=== PATIENT | female | born 1980 | race Caucasian/White ===

== ENCOUNTER 2020-07-15 08:41 | Day surgery (SDC) | payer OTHER, SELFPAY ==
[2020-07-15 08:45] LABS: Absolute Lymphocytes (CBC) 1.6 K/uL (0.7-4.9); Basophils % 0.7 % (0-1.3); Lymphocytes % 24.1 % (15.3-44.8); MPV 8.1 fL (7.6-11.3); RBC Red Blood Cell Count 4.38 M/uL (3.86-4.86)
[2020-07-15 09:12] LABS: ALT/SGPT 19 U/L (12-78); AST/SGOT 14 U/L (15-37); Albumin 3.5 g/dL (3.4-5.0); Alkaline Phosphatase 82 U/L (45-117); Amylase 28 U/L (25-115); BUN Blood Urea Nitrogen 14 mg/dL (7-18); Bicarbonate 30 mmol/L (21-32); Bilirubin Direct 0.1 mg/dL (0-0.2); Bilirubin Total 0.7 mg/dL (0.2-1.0); Glucose Level 99 mg/dL (74-106); Lipase 129 U/L (73-393); Potassium 3.9 mmol/L (3.5-5.1); Protein, Total 7.8 g/dL (6.4-8.2); Sodium Level 141 mmol/L (136-145)
--- NOTE | 2020-07-15 09:20 | RAD REPORT ---
EXAM DESCRIPTION: Rosio Osborne (2 Views)07/15/2020 8:43 am CLINICAL HISTORY: Preop for gallbladder surgery COMPARISON: None FINDINGS: The lungs appear clear of acute infiltrate. The heart is normal size IMPRESSION: No acute abnormalities displayed
[2020-07-15] MEDS ORDERED: Ringers Lactate 1,000 ML IV ONE ×2 (10:03→13:10)
[2020-07-15] MEDS: CEFOXITIN/SWI 1gm 1 GM/10 ML SYR ONE ×2 (11:18→12:00)
[2020-07-15] MEDS ORDERED: FENTANYL CITR 100 MCG/2 ML ONE ×2 (12:07→12:30)
[2020-07-15] MEDS ORDERED: ROCURONIUM 50 MG/5 ML VIAL IV ONE (12:08)
[2020-07-15] MEDS ORDERED: LIDOCAINE 1% MPF 5 ML VIAL ONE (12:08)
[2020-07-15] MEDS ORDERED: MIDAZOLAM HCL 2 MG/2 ML INJ ONE (12:08)
[2020-07-15] MEDS ORDERED: propofoL 200 MG/20 ML VIAL IV ONE (12:08)
[2020-07-15] MEDS ORDERED: dexAMETHasone 10 MG/ML VIAL ONE (12:35)
[2020-07-15] MEDS ORDERED: ONDANSETRON 4 MG/2 ML VIAL ONE (12:37)
[2020-07-15] MEDS ORDERED: KETOROLAC 30 MG/ML INJ ONE (12:37)
[2020-07-15] MEDS ORDERED: EPHEDRINE SULF 50 MG/ML VIAL ONE (12:42)
[2020-07-15] MEDS ORDERED: NEOSTIGMINE 1 MG/ML -5 ML ONE (13:01)
[2020-07-15] MEDS ORDERED: GLYCOPYRROLATE 0.2 MG/ML SYR ONE ×2 (13:01→13:10)
[2020-07-15] MEDS ORDERED: HYDROCODONE/APAP 5/325 MG TAB PO ONE (13:53)
[2020-07-15] MEDS ORDERED: HYDROCODONE/APAP 10/325 TAB ONE (14:12)
[2020-07-15 14:34] VITALS: BP 125/75; TEMP 96.6; O2SAT 98
--- NOTE | 2020-07-15 23:37 | OP ---
Date of Procedure: 07/15/2020 Surgeon: Rayray Nixon MD Bag Press Operator: ANJALI Trevizo. Preoperative Diagnoses: Right upper quadrant abdominal pain, acute cholecystitis, symptomatic cholel ithiasis. Postoperative Diagnosis: Right upper quadrant abdominal pain, acute cholecystitis, symptomatic jomar lithiasis plus intraabdominal adhesions. Procedure: Laparoscopic cholecystectomy, laparoscopic lysis of adhesions. Anesthesia: General plus local. Indication: This is the case of a 39-year-old patient who comes to us with above diagnosis. I fully explained the benefits, alternatives, and risks of laparoscopic, possible open cholecystectomy which include, but not limited to infection, bleeding, damage to adjacent structures, anesthesia complicat ion, choledocholithiasis, bile leak, pancreatitis, DC, and even . She also understands this may not relieve her symptoms. She might need more than one surgical intervention. She understood, sign ed a consent. Procedure In Detail: The patient was brought to the operating room, placed in supine position. Anes thesia was done without complication. Abdominal area was prepped and draped in a sterile fashion. M arcaine 0.5% was injected for local anesthetic followed by sharp incision of the skin in the infraumb ilical region. Incision was carried down to fascia, which was opened under direct vision. Peritoneu m was encountered, opened under direct vision. Vicryl #1 was placed inside the fascia. Katalina troca r was carefully introduced. Pneumoperitoneum was obtained. I placed 3 more trocars, 5 mm each one o f them in epigastric and right upper quadrant area under direct visualization after making an incisio n. This allowed me to put a grasper in the fundus of the gallbladder. Numerous omental adhesions to the gallbladder were carefully removed in order to continue with the surgery. We made sure there we re no enterotomies and there was no bleeding. Another grasper was placed in the infundibulum and the gallbladder was retracted in the inferolateral fashion exposing the triangle of Calot obtaining crit ical view. Cystic duct and cystic artery were clearly isolated free circumferentially, and a connect ion between those and the gallbladder were clearly identified. I proceeded to ligate those by using at least 3 clips proximal, 1 clip distal, ligation in middle. Same was done with the cystic artery. No bile leak. No bleeding. The gallbladder was removed from liver using Bovie cauterizer and remov ed from abdominal cavity using EndoCatch through the umbilical incision. The area was inspected once again. No bile leak. No bleeding. At that moment, I proceeded to remove trocars under direct visi on. Deflated pneumoperitoneum. Closed the fascia with 1 Vicryl. Irrigated the subcutaneous tissue, closed with 3-0 chromic and skin in a subcuticular fashion with 3-0 chromic and Steri-Strips on top. Sponge count and instrument counts correct. The patient tolerated the procedure well. The patient was on her way to recovery in stable condition. CIERRA/KENN Voice ID: [id number] Report ID: [id number]
--- NOTE | 2020-07-15 23:43 | DS ---
Date of Discharge: 07/15/2020 Diagnoses: Acute cholecystitis, right upper quadrant abdominal pain, symptomatic cholelithiasis. Procedure: Laparoscopic cholecystectomy. Disposition: Home. Activity: As tolerated. No heavy lifting. Follow in my office in 1 week. Call for appointment at [phone]. Keep area dry for 48 hours, then may shower. Keep Steri-Strips intact. CIERRA/KENN Voice ID: [id number] Report ID: [id number]
--- NOTE | 2020-07-16 07:20 | EKG ---
Test Date: 2020-07-15 Test Time: 07:18:43 Log Check Scaler: GILSON MEASUREMENT RESULTS: Intervals: Rate: 72 AK: 162 QRSD: 86 QT: 390 QTc: 427 Soddy Daisy: P: 54 AK: 162 QRS: 54 T: 44 INTERPRETIVE STATEMENTS: Normal sinus rhythm Normal ECG No previous ECG available for comparison Electronically Signed On 07-16-20 07:18:09 CDT by Rudi Rosales
== END 2020-07-15 14:30 | disposition home or self-care (01) ==
LOC: OR 08:41
PROVIDERS: ATTEND Surgery
PROC: 0FT44ZZ Resection of Gallbladder, Percutaneous Endoscopic Approach (ICD-10-PCS; principal; 2020-07-15 10:30)
DX: K80.10 Calculus of gallbladder with chronic cholecystitis without obstruction (principal); Z20.822 Contact with and (suspected) exposure to COVID-19
CPT/HCPCS: 36415; 71046; 80048; 80076; 82150; 83690; 84703; 85025; 88304; 93005; J1100; J2250; J2405; J2704; J2710; J3010; J7120; U0003